=== PATIENT | female | born 1945 | race Caucasian/White ===

== ENCOUNTER 2022-01-31 07:43 | Day surgery (SDC) | payer OTHER ==
[~2022-01-31] VITALS: Ht 157.5 cm; Wt 69.7 kg
[~2022-01-31 07:43] MED LIST: ACYC400 PO; ASPI81CH PO; ENOX40I SC; ERGO400 PO; ESTR.05P; ESTR2 PO; LEVSOD100 PO; LEVSOD50; LORTAB 7.5-3251 EACH PO; Norco 7.5-3251 EACH PO; PROM25 PO; ROXICODONE5 MG PO
[2022-01-31] MEDS ORDERED: ASPI325 (08:00)
--- NOTE | 2022-01-31 12:34 | NUR ---
01/31/22 1234 GUERDA BEY SECOND PAGE OF VITALS DID NOT PRINT. PT WAS STABLE T/O PROCEDURE.
== END 2022-01-31 10:15 | disposition home or self-care (01) ==
LOC: ORSCSDS 07:43
PROVIDERS: Student in an Organized Health Care Education/Training Program
PROC: 0DBH8ZX Excision of Cecum, Via Natural or Artificial Opening Endoscopic, Diagnostic (ICD-10-PCS; principal; 2022-01-31 09:00)
PROC: 0DBK8ZX Excision of Ascending Colon, Via Natural or Artificial Opening Endoscopic, Diagnostic (ICD-10-PCS; principal; 2022-01-31 09:00)
DX: Z12.11 Encounter for screening for malignant neoplasm of colon (principal); D12.0 Benign neoplasm of cecum; D12.2 Benign neoplasm of ascending colon; K57.30 Diverticulosis of large intestine without perforation or abscess without bleeding; Z86.010 Personal history of colon polyps; E03.9 Hypothyroidism, unspecified; Z79.899 Other long term (current) drug therapy
CPT/HCPCS: 88305; J2704; J7120

== ENCOUNTER 2022-12-25 06:51 | Day surgery (SDC) | payer OTHER ==
[~2022-12-25] VITALS: Ht 157.5 cm; Wt 70.0 kg
[~2022-12-25 06:51] MED LIST changes: +ASPI325
[2022-12-25] MEDS ORDERED: ASPI81CH (07:03)
== END 2022-12-25 09:09 | disposition home or self-care (01) ==
LOC: ORSCSDS 06:51
PROVIDERS: Student in an Organized Health Care Education/Training Program
PROC: 0DBK8ZX Excision of Ascending Colon, Via Natural or Artificial Opening Endoscopic, Diagnostic (ICD-10-PCS; principal; 2022-12-25 08:00)
PROC: 0DBH8ZX Excision of Cecum, Via Natural or Artificial Opening Endoscopic, Diagnostic (ICD-10-PCS; principal; 2022-12-25 08:00)
DX: Z86.010 Personal history of colon polyps (principal); D12.3 Benign neoplasm of transverse colon; D12.2 Benign neoplasm of ascending colon; K63.89 Other specified diseases of intestine; K57.30 Diverticulosis of large intestine without perforation or abscess without bleeding; E03.9 Hypothyroidism, unspecified; Z87.891 Personal history of nicotine dependence; Z79.899 Other long term (current) drug therapy
CPT/HCPCS: 88305; J2704; J7120

== ENCOUNTER → 2023-09-13 | Outpatient (CLI) | payer OTHER ==
[~2023-09-13] MED LIST changes: +ASPI81CH
[2023-09-13 10:41] LABS: BASOPHILS ABSOLUTE AUTO 0.11 K/mm3 (0.00-0.23); BASOPHILS PERCENT AUTO 2 % (0-2); EOSINOPHILS ABSOLUTE AUTO 0.37 K/mm3 (0.00-0.68); EOSINOPHILS PERCENT AUTO 7 % (0-6); Hematocrit 38.6 % (33.0-51.0); Hemoglobin 12.6 g/dL (11.5-16.0); IMMATURE GRAN ABSOLUTE AUTO 0.01 K/mm3 (0.00-0.10); IMMATURE GRAN PERCENT AUTO 0 % (0-1); LYMPHOCYTES ABSOLUTE AUTO 2.05 K/mm3 (0.84-5.20); LYMPHOCYTES PERCENT AUTO 41 % (21-46); MONOCYTES PERCENT AUTO 12 % (4-13); Mean Corpuscular HGB 28.7 pg (26.0-34.0); Mean Corpuscular HGB Conc 32.6 g/dL (31.5-36.5); Mean Corpuscular Volume 88 fL (80-100); Mean Platelet Volume 10.1 fL (9.1-12.4); NEUTROPHILS ABSOLUTE AUTO 1.87 K/mm3 (1.96-9.15); NEUTROPHILS PERCENT AUTO 37 % (41-73); Platelet Count 242 K/mm3 (150-400); RDW Coefficient Variation 13.4 % (11.7-14.2); RDW Standard Deviation 43.7 fL (35.1-46.3); Red Blood Cell Count 4.39 M/mm3 (3.80-5.20); White Blood Cell Count 5.01 K/mm3 (4.00-11.30)
[2023-09-13 11:15] LABS: Alanine Aminotransfer (ALT/SGP 22 U/L (12-78); Albumin, Blood 3.7 g/dL (3.4-5.0); Albumin/Globulin Ratio 1.1 (0.8-1.8); Alk Phos 74 U/L (50-136); Anion Gap 5 mmol/L (6-16); Aspartate Aminotrans (AST/SGOT 19 U/L (12-37); Bilirubin, Total 0.4 mg/dL (0.1-1.0); Blood Urea Nitrogen 10 mg/dL (8-24); Bun/Creatinine Ratio 14.1 (12.0-20.0); CHOL/HDL RATIO 3.1; CO2, Blood 25 mmol/L (21-32); Calcium, Blood 8.6 mg/dL (8.5-10.1); Chloride, Blood 110 mmol/L (98-108); Cholesterol 254 mg/dL (50-200); Creatinine, Blood 0.71 mg/dL (0.40-1.00); Globulin, Blood 3.5 g/dL (2.2-4.0); Glomerular Filtration Rate 89 (60-); Glucose, Blood 94 mg/dL (70-99); HDL Cholesterol 82 mg/dL (>39); LDL/HDL RATIO 1.8; Low Density Lipoprotein Chol 150 mg/dL (0-110); Sodium, Blood 140 mmol/L (136-145); Total Protein, Blood 7.2 g/dL (6.4-8.2); Triglycerides 111 mg/dL (30-160); Very Low Density Lipoprot Chol 22 mg/dL (6-32)
== END | disposition home or self-care (01) ==
LOC: LAB SHORT 07:40 → LAB 07:40
PROVIDERS: Internal Medicine
DX: E03.9 Hypothyroidism, unspecified (principal); E78.5 Hyperlipidemia, unspecified; F33.1 Major depressive disorder, recurrent, moderate
CPT/HCPCS: 80053; 80061; 84443; 85025

== ENCOUNTER 2023-11-06 06:45 | Day surgery (SDC) | payer OTHER ==
[~2023-11-06] VITALS: Ht 154.9 cm; Wt 68.3 kg
[~2023-11-06 06:45] MED LIST changes: +ASPI325 PO; -ASPI81CH; -ESTR2 PO; +ESTRADIOL1 MG PO; +SYNTHROID125 MC1 PO
--- NOTE | 2023-11-06 07:15 | NUR ---
11/06/23 0715 Toshia Elam TETRACAINE AT 0702 PLEDGET AT 0703 PT COMFORTABLE IN BED. CALL LIGHT WITHIN REACH. BED IN LOWEST POISITION. SIDE RAILS UP.
[2023-11-06 08:17] VITALS: BP 134/63
--- NOTE | 2023-11-06 08:35 | NUR ---
11/06/23 0835 Ajay Jacobsen IV REMOVED INTACT. SITE WNL.
== END 2023-11-06 08:32 | disposition home or self-care (01) ==
LOC: ORSCSDS 06:45
PROVIDERS: Student in an Organized Health Care Education/Training Program
PROC: 08RJ3JZ Replacement of Right Lens with Synthetic Substitute, Percutaneous Approach (ICD-10-PCS; principal; 2023-11-06 08:00)
DX: H25.13 Age-related nuclear cataract, bilateral (principal); E03.9 Hypothyroidism, unspecified; Z79.899 Other long term (current) drug therapy
CPT/HCPCS: J2001; J2250; J3010; J7040; V2632

== ENCOUNTER 2023-11-13 06:13 | Day surgery (SDC) | payer OTHER ==
[~2023-11-13] VITALS: Ht 154.9 cm; Wt 70.0 kg
[2023-11-13 07:54] VITALS: BP 106/68
--- NOTE | 2023-11-13 08:11 | NUR ---
11/13/23 0811 Ajay Jacobsen IV REMOVED INTACT. SITE WNL.
== END 2023-11-13 08:08 | disposition home or self-care (01) ==
LOC: ORSCSDS 06:13
PROVIDERS: Student in an Organized Health Care Education/Training Program
PROC: 08RK3JZ Replacement of Left Lens with Synthetic Substitute, Percutaneous Approach (ICD-10-PCS; principal; 2023-11-13 07:30)
DX: H25.12 Age-related nuclear cataract, left eye (principal); Z96.1 Presence of intraocular lens; Z79.82 Long term (current) use of aspirin; Z79.899 Other long term (current) drug therapy
CPT/HCPCS: J2001; J2250; J3010; J7040; V2632

== ENCOUNTER 2023-12-25 08:19 | Day surgery (SDC) | payer OTHER ==
[~2023-12-25] VITALS: Ht 154.9 cm; Wt 68.9 kg
[2023-12-25 10:35] VITALS: BP 128/76
== END 2023-12-25 10:37 | disposition home or self-care (01) ==
LOC: ORSCSDS 08:19
PROVIDERS: Surgery
PROC: 0DJD8ZZ Inspection of Lower Intestinal Tract, Via Natural or Artificial Opening Endoscopic (ICD-10-PCS; principal; 2023-12-25 09:30)
DX: Z86.010 Personal history of colon polyps (principal); E03.9 Hypothyroidism, unspecified; K57.30 Diverticulosis of large intestine without perforation or abscess without bleeding; Z79.899 Other long term (current) drug therapy
CPT/HCPCS: J0461; J2001; J2405; J2704; J7120; Q9968